=== PATIENT | male | born 1950 | race Caucasian/White ===

== ENCOUNTER 2017-03-31 16:11 | Outpatient (CLI) | payer MEDICARE, OTHER ==
--- NOTE | 2017-03-31 16:44 | RAD ---
LEFT SHOULDER THREE VIEWS: 03/31/17 HISTORY: 67-year-old male with history of bilateral shoulder pain. COMPARISON: 09/23/15. FINDINGS: Degenerative changes of the left AC joint and glenohumeral joint without acute fracture or dislocatio n. IMPRESSION: Degenerative changes without acute fracture or dislocation. POS: OFF
--- NOTE | 2017-03-31 16:46 | RAD ---
RIGHT SHOULDER THREE VIEWS 03/31/17 HISTORY: 67-year-old male with history of bilateral shoulder pain. COMPARISON: 09/23/15. FINDINGS: AC joint and glenohumeral joint arthrosis with some hypertrophic osteophytosis off the inferior gleno id. No acute fracture or dislocation. Stable from prior study. IMPRESSION: Degenerative change without acute fracture or dislocation. POS: OFF
== END 2017-03-31 16:12 | disposition home or self-care (01) ==
LOC: TBSIIMAG 16:11
PROVIDERS: ATTEND Psychiatry & Neurology Neurology
DX: M25.511 Pain in right shoulder (principal); M25.512 Pain in left shoulder; M19.012 Primary osteoarthritis, left shoulder; M19.011 Primary osteoarthritis, right shoulder

== ENCOUNTER 2017-06-27 11:32 | Outpatient (CLI) | payer MEDICARE, OTHER ==
--- NOTE | 2017-06-27 14:42 | MRI ---
MRI OF LEFT SHOULDER PERFORMED WITHOUT CONTRAST ENHANCEMENT: History: Severe left shoulder pain. FINDINGS: There are some moderate AC joint hypertrophic changes present. There is a massive rotator cuff tear p resent. This involves the supraspinatus tendon and some of the more anterior fibers of the infraspina tus tendon. The full thickness component of this tear is protracted by approximately 3.1 cm. There is an undersurface component of this tear extending into the most posterior fibers of the infraspinatus . This tear also includes a complete tear of the subscapularis tendon which is retracted by as much a s 3.3 cm. I cannot definitely identify any intraarticular component of the biceps tendon and I do not see any component within the bicipital groove. There are arthritic changes of the glenohumeral joint space. There is a irregular appearance to the s uperior labrum and posterior superior labrum. The posterior inferior labrum is also irregular and tor n. There is fairly pronounced subscapularis muscle atrophy. Mild atrophy of the supra and infraspinatus muscles are seen. IMPRESSION: 1. Massive rotator cuff tear. This involves the subscapularis and supraspinatus tendon basically in t heir entirety, and some portion of anterior fibers of the infraspinatus tendon. There is fairly prono unced atrophy of the subscapularis muscle and mild atrophy of the supra and infraspinatus muscles. 2. Arthritic change of the glenohumeral joint space with extensive labral changes basically involving the superior and entire posterior labrum. There was also a tear of the intraarticular portion of the biceps tendon. It is difficult to even definitely identify any component of the biceps tendon. 3. Fluid and edema changes extending into the musculotendinous junction of the subscapularis tendon. POS: [facility]
== END 2017-06-27 11:33 | disposition home or self-care (01) ==
LOC: MRI 11:32
PROVIDERS: ATTEND Family Medicine
DX: M75.102 Unspecified rotator cuff tear or rupture of left shoulder, not specified as traumatic (principal); M19.012 Primary osteoarthritis, left shoulder

== ENCOUNTER 2020-09-10 22:29 | Emergency (ER) | payer MEDICARE, OTHER ==
[2020-09-10] MEDS ORDERED: Fentanyl 100 MCG/2 ML VIAL ONE (23:20)
== END 2020-09-11 02:15 ==
LOC: ERS 22:29
DX: S12.14XA Type III traumatic spondylolisthesis of second cervical vertebra, initial encounter for closed fracture (principal); K21.9 Gastro-esophageal reflux disease without esophagitis; I10 Essential (primary) hypertension; Z79.899 Other long term (current) drug therapy; X58.XXXA Exposure to other specified factors, initial encounter
CPT/HCPCS: 96374; J3010

== ENCOUNTER 2020-11-20 07:57 | Outpatient (CLI) | payer MEDICARE, OTHER | END 2020-11-20 07:58 | disposition home or self-care (01) | LOC: TBSIIMAG 07:57 | PROVIDERS: ATTEND Neurological Surgery | DX: S12.110D Anterior displaced Type II dens fracture, subsequent encounter for fracture with routine healing (principal) | CPT/HCPCS: 72040; 72100 ==

== ENCOUNTER 2021-12-17 11:09 | Inpatient (IN) | payer MEDICARE, MEDICAID ==
[2021-12-17] MEDS ORDERED: Acetaminophen 325 MG TAB PO PRN (12:27)
[2021-12-17] MEDS ORDERED: Ondansetron PF 4 MG/2 ML Vial IVP PRN (12:27)
[2021-12-17] MEDS ORDERED: Ondansetron ODT 4 MG TAB PO PRN (12:27)
[2021-12-17] MEDS ORDERED: Calcium Carbonate 500 MG ChewTAB PO PRN (12:27)
[2021-12-17] MEDS ORDERED: Senokot S 8.6-50 MG TAB PO PRN (12:27)
[2021-12-17] MEDS ORDERED: Sodium Chloride 0.9% 1,000 ML IV SCH (12:30)
[2021-12-17] MEDS ORDERED: Labetalol HCl 100 MG/20 ML VIAL SLOW IVP PRN (12:44)
[2021-12-17] MEDS ORDERED: niCARdipine 25 MG in Sodium Chloride 0.9% 250 ML 240 ML IVPB PRN (12:45)
[2021-12-17] MEDS ORDERED: Acetaminophen 650 MG/20.3 ML UDCUP PO PRN (12:45)
[2021-12-17] MEDS ORDERED: Piperacillin/Tazobactam 3.375 GM in Sodium Chloride 0.9% 100 ML IVPB SCH ×3 (14:15→21:00)
[2021-12-17] MEDS: Sodium Chloride 0.9% 1,000 ML IV SCH (15:10)
[2021-12-17] MEDS: Famotidine/PF 20 mg/2ml Vial SLOW IVP SCH (20:32)
[2021-12-17] MEDS: Famotidine 20 MG TAB PO SCH (20:32)
[2021-12-17] MEDS: Piperacillin/Tazobactam 3.375 GM in Sodium Chloride 0.9% 100 ML IVPB SCH (20:32)
[2021-12-17] MEDS: Atorvastatin Calcium 40 MG TAB PO SCH (20:33)
[2021-12-18 03:31] LABS: #Lymphocytes 0.9 thou/uL (1.20-3.40); #Monocytes 1.3 thou/uL (0.11-0.59); #Neutrophils 8.7 thou/uL (1.40-6.50); %Eosinophils 0.2 % (0.0-10.0); %Lymphocytes 8.3 % (21.0-51.0); %Neutrophils 79.5 % (42.0-75.0); Hemoglobin 10.2 g/dL (14.0-18.0); Mean Corpuscular HGB CONC 33.6 g/dL (32.0-36.0); Mean Corpuscular Hemoglobin 33.6 pg (27.0-31.0); Platelet Count 168 10x3/uL (130-400); RBC Distribution Width 11.7 % (11.5-14.5); Red Blood Cell (RBC) Count 3.04 mill/uL (4.70-6.10)
[2021-12-18 03:47] LABS: Lactic Acid 2.1 mmol/L (0.5-2.2)
[2021-12-18] MEDS: Sodium Chloride 0.9% 1,000 ML IV SCH ×2 (04:00→16:41)
[2021-12-18] MEDS: Piperacillin/Tazobactam 3.375 GM in Sodium Chloride 0.9% 100 ML IVPB SCH ×3 (04:01→20:22)
[2021-12-18 04:34] LABS: ALT (SGPT) 16 U/L (8-55); AST (SGOT) 27 U/L (5-34); Albumin 3.1 g/dL (3.4-4.8); Alkaline Phosphatase 51 U/L (40-110); Anion Gap 16 mmol/L (10-20); BUN (Urea Nitrogen) 20 mg/dL (8.4-25.7); Bilirubin, Total 0.8 mg/dL (0.2-1.2); Calc. Creatinine Clearance 92 mL/min (70-130); Calcium 8.4 mg/dL (7.8-10.44); Carbon Dioxide 20 mmol/L (23-31); Cardiac Risk 2.8 (Less than 4.5); Chloride 108 mmol/L (98-107); Cholesterol 128 mg/dl (< 200 Desired); Estimated GFR 89; Globulin 3.1 g/dL (2.4-3.5); Glucose 146 mg/dL (83-110); HDL Cholesterol 46 mg/dL (>60 Neg Risk); LDL Cholesterol, Calculated 72 mg/dL; Magnesium 2.2 mg/dL (1.6-2.6); Potassium 4.3 mmol/L (3.5-5.1); Protein, Total 6.2 g/dL (5.8-8.1); Sodium 140 mmol/L (136-145); Triglycerides 48 mg/dL (Less than 150)
[2021-12-18] MEDS: Famotidine/PF 20 mg/2ml Vial SLOW IVP SCH ×2 (09:15→20:21)
[2021-12-18] MEDS: Famotidine 20 MG TAB PO SCH ×2 (09:16→20:22)
[2021-12-18] MEDS: Acetaminophen 650 MG Suppository PR PRN (20:17)
[2021-12-18] MEDS: Atorvastatin Calcium 40 MG TAB PO SCH (20:22)
[2021-12-18] MEDS ORDERED: Ibuprofen 200 MG TAB PO PRN (20:46)
[2021-12-18] MEDS ORDERED: Metoprolol Tartrate 5 MG/5 ML VIAL IVP SCH (21:06)
[2021-12-18] MEDS ORDERED: Ketorolac Tromethamine 30 MG/ML VIAL IVP SCH (21:15)
[2021-12-18 21:54] LABS: ALT (SGPT) 18 U/L (8-55); AST (SGOT) 22 U/L (5-34); Albumin 3.2 g/dL (3.4-4.8); Alkaline Phosphatase 49 U/L (40-110); Anion Gap 15 mmol/L (10-20); BUN (Urea Nitrogen) 21 mg/dL (8.4-25.7); Bilirubin, Total 0.7 mg/dL (0.2-1.2); Calc. Creatinine Clearance 96 mL/min (70-130); Calcium 8.5 mg/dL (7.8-10.44); Carbon Dioxide 17 mmol/L (23-31); Chloride 112 mmol/L (98-107); Estimated GFR 93; Globulin 2.7 g/dL (2.4-3.5); Glucose 99 mg/dL (83-110); Potassium 4.1 mmol/L (3.5-5.1); Protein, Total 5.9 g/dL (5.8-8.1); Sodium 140 mmol/L (136-145)
[2021-12-19] MEDS ORDERED: Metoprolol Tartrate 25 MG TAB PO SCH (00:15)
[2021-12-19] MEDS: Acetaminophen 650 MG Suppository PR PRN ×2 (03:30→11:55)
[2021-12-19] MEDS: Piperacillin/Tazobactam 3.375 GM in Sodium Chloride 0.9% 100 ML IVPB SCH ×3 (03:51→21:11)
[2021-12-19 05:17] LABS: #Eosinphils 0.1 thou/uL (0.0-0.7); #Lymphocytes 1.1 thou/uL (1.20-3.40); #Monocytes 1.1 thou/uL (0.11-0.59); #Neutrophils 7.5 thou/uL (1.40-6.50); %Basophils 0.4 % (0.0-1.0); %Eosinophils 0.8 % (0.0-10.0); %Lymphocytes 11.3 % (21.0-51.0); %Monocytes 10.9 % (0.0-10.0); %Neutrophils 76.6 % (42.0-75.0); Hemoglobin 10.3 g/dL (14.0-18.0); Mean Corpuscular HGB CONC 32.4 g/dL (32.0-36.0); Mean Corpuscular Hemoglobin 32.9 pg (27.0-31.0); Mean Platelet Volume 6.9 fL (7.4-10.4); Platelet Count 184 10x3/uL (130-400); RBC Distribution Width 11.4 % (11.5-14.5); Red Blood Cell (RBC) Count 3.12 mill/uL (4.70-6.10); White Blood Cell (WBC) Count 9.8 10x3/uL (4.8-10.8)
[2021-12-19 05:41] LABS: ALT (SGPT) 19 U/L (8-55); AST (SGOT) 24 U/L (5-34); Albumin 3.3 g/dL (3.4-4.8); Alkaline Phosphatase 51 U/L (40-110); Anion Gap 15 mmol/L (10-20); BUN (Urea Nitrogen) 22 mg/dL (8.4-25.7); Bilirubin, Total 0.9 mg/dL (0.2-1.2); Calc. Creatinine Clearance 102 mL/min (70-130); Calcium 8.7 mg/dL (7.8-10.44); Carbon Dioxide 20 mmol/L (23-31); Chloride 111 mmol/L (98-107); Estimated GFR 95; Globulin 2.6 g/dL (2.4-3.5); Glucose 89 mg/dL (83-110); Potassium 3.6 mmol/L (3.5-5.1); Protein, Total 5.9 g/dL (5.8-8.1); Sodium 142 mmol/L (136-145)
[2021-12-19] MEDS: Famotidine 20 MG TAB PO SCH ×2 (09:10→21:11)
[2021-12-19] MEDS: Sodium Chloride 0.9% 1,000 ML IV SCH (09:54)
[2021-12-19] MEDS: Famotidine/PF 20 mg/2ml Vial SLOW IVP SCH ×2 (11:55→21:12)
[2021-12-19] MEDS: hydrALAZINE 20 MG/ML VIAL SLOW IVP PRN (21:11)
[2021-12-19] MEDS: Atorvastatin Calcium 40 MG TAB PO SCH (21:12)
[2021-12-19] MEDS: traMADol HCl 50 MG TAB PO SCH (21:12)
[2021-12-19] MEDS ORDERED: HYDROmorphone 0.5 MG/0.5 ML SYRINGE SLOW IVP SCH (23:30)
[2021-12-20] MEDS: Piperacillin/Tazobactam 3.375 GM in Sodium Chloride 0.9% 100 ML IVPB SCH ×3 (04:49→19:48)
[2021-12-20] MEDS: Acetaminophen 325 MG TAB PO PRN ×2 (05:15→11:36)
[2021-12-20 05:29] LABS: #Eosinphils 0.1 thou/uL (0.0-0.7); #Lymphocytes 1.2 thou/uL (1.20-3.40); #Monocytes 0.9 thou/uL (0.11-0.59); %Basophils 0.4 % (0.0-1.0); %Eosinophils 1.1 % (0.0-10.0); %Lymphocytes 11.3 % (21.0-51.0); %Monocytes 8.6 % (0.0-10.0); %Neutrophils 78.7 % (42.0-75.0); Hemoglobin 10.1 g/dL (14.0-18.0); Mean Corpuscular HGB CONC 32.5 g/dL (32.0-36.0); Mean Corpuscular Hemoglobin 33.1 pg (27.0-31.0); Mean Platelet Volume 6.9 fL (7.4-10.4); Platelet Count 241 10x3/uL (130-400); RBC Distribution Width 11.5 % (11.5-14.5); Red Blood Cell (RBC) Count 3.05 mill/uL (4.70-6.10); White Blood Cell (WBC) Count 10.2 10x3/uL (4.8-10.8)
[2021-12-20 05:48] LABS: ALT (SGPT) 29 U/L (8-55); AST (SGOT) 30 U/L (5-34); Albumin 3.4 g/dL (3.4-4.8); Alkaline Phosphatase 54 U/L (40-110); Anion Gap 13 mmol/L (10-20); BUN (Urea Nitrogen) 23 mg/dL (8.4-25.7); Bilirubin, Total 0.6 mg/dL (0.2-1.2); Calc. Creatinine Clearance 101 mL/min (70-130); Calcium 8.8 mg/dL (7.8-10.44); Carbon Dioxide 21 mmol/L (23-31); Chloride 113 mmol/L (98-107); Estimated GFR 95; Globulin 2.7 g/dL (2.4-3.5); Glucose 96 mg/dL (83-110); Potassium 3.7 mmol/L (3.5-5.1); Protein, Total 6.1 g/dL (5.8-8.1); Sodium 143 mmol/L (136-145)
[2021-12-20] MEDS: Famotidine/PF 20 mg/2ml Vial SLOW IVP SCH ×2 (11:27→21:00)
[2021-12-20] MEDS: traMADol HCl 50 MG TAB PO SCH ×2 (11:28→20:55)
[2021-12-20] MEDS: Famotidine 20 MG TAB PO SCH (11:28)
[2021-12-20] MEDS: hydrALAZINE 20 MG/ML VIAL SLOW IVP PRN (20:53)
[2021-12-20] MEDS: risperiDONE 1 MG TAB PO SCH (20:55)
[2021-12-20] MEDS: Atorvastatin Calcium 40 MG TAB PO SCH (20:57)
[2021-12-21] MEDS: Famotidine 20 MG TAB PO SCH ×3 (00:35→21:55)
[2021-12-21] MEDS: Piperacillin/Tazobactam 3.375 GM in Sodium Chloride 0.9% 100 ML IVPB SCH ×3 (03:24→20:55)
[2021-12-21] MEDS: Acetaminophen 325 MG TAB PO PRN (09:35)
[2021-12-21] MEDS: Sertraline 25 MG TAB PO SCH (09:35)
[2021-12-21] MEDS: traMADol HCl 50 MG TAB PO SCH ×2 (09:36→21:55)
[2021-12-21] MEDS: Famotidine/PF 20 mg/2ml Vial SLOW IVP SCH ×2 (09:37→21:57)
[2021-12-21] MEDS ORDERED: Divalproex Sodium 125 mg Sprinkle Capsule PO SCH (10:15)
[2021-12-21] MEDS: Atorvastatin Calcium 40 MG TAB PO SCH (21:55)
[2021-12-21] MEDS: Divalproex Sodium 125 mg Sprinkle Capsule PO SCH (21:55)
[2021-12-21] MEDS: risperiDONE 1 MG TAB PO SCH (21:55)
[2021-12-21] MEDS: hydrALAZINE 20 MG/ML VIAL SLOW IVP PRN (21:57)
[2021-12-22] MEDS: Piperacillin/Tazobactam 3.375 GM in Sodium Chloride 0.9% 100 ML IVPB SCH ×3 (05:05→20:45)
[2021-12-22] MEDS: Famotidine 20 MG TAB PO SCH ×2 (08:08→22:00)
[2021-12-22] MEDS: Sertraline 25 MG TAB PO SCH (08:10)
[2021-12-22] MEDS: traMADol HCl 50 MG TAB PO SCH ×2 (08:11→22:01)
[2021-12-22] MEDS: Divalproex Sodium 125 mg Sprinkle Capsule PO SCH ×2 (08:12→22:03)
[2021-12-22] MEDS: Famotidine/PF 20 mg/2ml Vial SLOW IVP SCH ×2 (08:20→22:06)
[2021-12-22] MEDS: Atorvastatin Calcium 40 MG TAB PO SCH (21:59)
[2021-12-22] MEDS: risperiDONE 1 MG TAB PO SCH (21:59)
[2021-12-23] MEDS: Piperacillin/Tazobactam 3.375 GM in Sodium Chloride 0.9% 100 ML IVPB SCH ×2 (04:57→12:52)
[2021-12-23 05:34] VITALS: BMI 26.4
[2021-12-23] MEDS: Divalproex Sodium 125 mg Sprinkle Capsule PO SCH (08:13)
[2021-12-23] MEDS: traMADol HCl 50 MG TAB PO SCH (08:14)
[2021-12-23] MEDS: Sertraline 25 MG TAB PO SCH (08:14)
[2021-12-23] MEDS: Famotidine 20 MG TAB PO SCH (08:15)
[2021-12-23] MEDS: Famotidine/PF 20 mg/2ml Vial SLOW IVP SCH (08:16)
[2021-12-23 16:03] VITALS: BP 126/82; TEMP 97.8
== END 2021-12-23 16:25 | DRG 64 ==
LOC: ERS 11:09 → CCU 13:48 → NEURO 12-18 17:03
PROVIDERS: ADMIT Internal Medicine; ATTEND Family Medicine
DX: I63.531 Cerebral infarction due to unspecified occlusion or stenosis of right posterior cerebral artery (principal); G93.41 Metabolic encephalopathy; I61.8 Other nontraumatic intracerebral hemorrhage; I47.20 Ventricular tachycardia, unspecified; Z20.822 Contact with and (suspected) exposure to COVID-19; R29.730 NIHSS score 30; F41.9 Anxiety disorder, unspecified; D64.9 Anemia, unspecified; M79.7 Fibromyalgia; K21.9 Gastro-esophageal reflux disease without esophagitis; G89.4 Chronic pain syndrome; J45.909 Unspecified asthma, uncomplicated; G25.81 Restless legs syndrome; D63.1 Anemia in chronic kidney disease; I12.9 Hypertensive chronic kidney disease with stage 1 through stage 4 chronic kidney disease, or unspecified chronic kidney disease; G30.9 Alzheimer's disease, unspecified; F02.80 Dementia in other diseases classified elsewhere, unspecified severity, without behavioral disturbance, psychotic disturbance, mood disturbance, and anxiety; F32.9 Major depressive disorder, single episode, unspecified; I49.3 Ventricular premature depolarization; R50.9 Fever, unspecified; E55.9 Vitamin D deficiency, unspecified; I48.0 Paroxysmal atrial fibrillation; R13.10 Dysphagia, unspecified; G47.33 Obstructive sleep apnea (adult) (pediatric); N18.9 Chronic kidney disease, unspecified; Z88.6 Allergy status to analgesic agent; Z88.8 Allergy status to other drugs, medicaments and biological substances; Z88.5 Allergy status to narcotic agent; Z79.899 Other long term (current) drug therapy; Z79.82 Long term (current) use of aspirin
CPT/HCPCS: 36415; 36416; 70450; 71045; 74230; 80053; 80061; 83605; 83735; 85025; 93005; 93010; 93306; 93880; 94640; 95816; 95819; 95957; J0360; J1170; J1885; J2543; J3490; J7050; J7620; S0028